=== PATIENT | male | born 1975 | race Caucasian/White ===

== ENCOUNTER 2017-02-09 02:59 | Emergency (ER) | payer SELFPAY ==
[~2017-02-09 02:59] MED LIST: AMOXICILLIN500 M1 PO; ARTHRITIS PILL; AUGMENTIN875 MG PO; BACTRIM DS TABL1 TA1 PO; CLINDAMYCIN HC300 MG PO; DOLOBID500 MG PO; FLEXERIL10 M1 PO; HYDROCODON-ACE1 EAC4 PO; HYDROCODON-ACE1 EAC9 PO; MEDROL PO; MOBIC PO; MORGIDOX100 MG PO; NAPROSYN500 MG PO; PEN-VEE K PO; ROBAXIN 750750 MG PO; SKELAXIN PO; TYLENOL #3 PO; ZYVOX600 MG PO
[2017-02-09] MEDS ORDERED: NO MEDICATIONS (03:19)
[2017-05-04] MEDS ORDERED: METHADONE PO (22:41)
== END 2017-02-09 04:06 | disposition home or self-care (01) ==
LOC: SED 02:59
DX: K08.89 Other specified disorders of teeth and supporting structures (principal)
CPT/HCPCS: 99283